=== PATIENT | male | born 1935 ===

== ENCOUNTER 2017-06-10 17:25 | Emergency (ER) | payer SELFPAY ==
[~2017-06-10] VITALS: Ht 177.8 cm; Wt 80.0 kg
[2017-06-10 17:27] VITALS: BP 161/76; PULSE 68; TEMP 36.7; O2SAT 98; Ht 177.8 cm; Wt 80.0 kg
[2017-06-10] MEDS ORDERED: DIPHTHERIA/TETANUS/PERTUSSIS 0.5 ML SYR/VIAL IM. ONE (17:45)
[2017-06-10] MEDS ORDERED: AMIO200T4 PO (17:53)
[2017-06-10] MEDS ORDERED: AMLO2.5T PO (17:54)
[2017-06-10] MEDS ORDERED: TPRSR/50 PO (17:54)
[2017-06-10] MEDS ORDERED: CEPH500C2 PO (17:54)
[2017-06-10] MEDS ORDERED: LOSA50TA54 PO (17:54)
[2017-06-10] MEDS ORDERED: RIVA1TAB4 PO (17:54)
[2017-06-10] MEDS ORDERED: METF-384 PO (17:57)
[2017-06-10] MEDS ORDERED: SIMV20TA2 PO (17:57)
--- NOTE | 2017-06-11 22:55 | EMERGENCY ROOM VISIT NOTE ---
ED Visit Note First contact with patient: 17:33 Chief Complaint: Left arm infection. History of Present Illness: Mr. Liborio García is an 82-year-old [place] male who ambulates into the ED accompanied by family members complaining of a left arm infection. Should be noted patient reports his primary language is [place] but he does speak a little bit of Slovak. I did not need to have much translation during my conversation with the patient has was able to explain/answer my questions. Patient reports a proximally 2 weeks ago he scratched his arm in [place]. He reports there was some initial bleeding but it was not severe. He reports over the last 2 weeks he has noted that the abrasion has been slightly red and intermittent oozing of clear fluid. He also reports that it is itchy. He is concerned about a possible infection in this area. He does report that he has been cleaning the area and covering it with antibiotic ointment but the itching and the redness has persisted. Currently he denies any fevers, chills, sweats, other skin eruptions, other skin color changes, upper respiratory tract symptoms, shortness of breath, chest pain, decreased appetite, abdominal pain, nausea, vomiting, left elbow pain, left arm weakness/numbness/tingling, pain in the area of the abrasion. Review of Systems: As noted above in history of present illness. Past Medical History: Hypertension, diabetes. Current Medications: Medications Dose Route/Sig Max Daily Dose Days Date Category Zocor (Simvastatin) 20 Mg Tab 20 Mg PO QPM 06/10/17 Reported Glucophage (Metformin Hcl) 1,000 Mg Tab 1,000 Mg PO BID 06/10/17 Reported Keflex (Cephalexin Monohydrate) 500 Mg Cap 500 Mg PO QID 7 06/10/17 Rx Xarelto (Rivaroxaban) 20 Mg Tab 20 Mg PO DAILY 06/10/17 Reported Cozaar (Losartan Potassium) 50 Mg Tab 50 Mg PO DAILY 06/10/17 Reported Norvasc (Amlodipine Besylate) 2.5 Mg Tab 2.5 Mg PO DAILY 06/10/17 Reported Metoprolol Succinate ER (Metoprolol Succinate) 50 Mg Tabcr 50 Mg PO DAILY 06/10/17 Reported Cordarone (Amiodarone Hcl) 200 Mg Tab 200 Mg PO DAILY 06/10/17 Reported Allergies to Medications: Asthma. Social History: Patient is not employed; he feels safe in his home environment; he denies tobacco and alcohol use. Physical Examination: Vital Signs: Date Time Temp Pulse Resp B/P (MAP) Pulse Ox O2 Delivery O2 Flow Rate FiO2 06/10/17 17:27 36.7 68 18 161/76 98 Room Air GENERAL: 82-year-old male in no acute distress, nontoxic-appearing, afebrile and hemodynamically stable. NEUROLOGICAL: Awake, alert and oriented to person, place and time. Answering questions appropriately and following commands. SKIN: Warm, dry and pink. LEFT UPPER EXTREMITY: Superficial abrasion over the lateral aspect of the distal humerus. This abrasion is surrounded with some mild erythema and edema. There is no purulent drainage or lymphangitis. Additionally noted in the area that is mildly erythematous and there appears to be a fine macular papular rash. LEFT UPPER EXTREMITY: Soft tissue injury as noted above. No gross bony deformity. No tenderness in the shoulder, elbow, forearm or wrist. Full range of motion of the shoulder, elbow and forearm. 4/5 muscle strength in all movements of the shoulder, elbow and forearm. Throughout the hand the skin was warm and pink and capillary refill is brisk. He was able to distinguish light sensations through all dermatomes. ED Course: Patient is assessed as noted above. Patient's medication list was reviewed. Patient's wound was cleansed and covered with bacitracin dressing. Patient and family members were educated about today's findings and instructed on his treatment plan; they verbalized understanding and agreement with this plan. Clinical Impression: Left upper extremity wound infection. Disposition: Patient discharged home in stable condition; prior to departure he was reassessed and continued to report he was pain and symptom-free except for the itching. Plan: Patient was prescribed Keflex 500 mg 4 times a day for 7 days. Patient was encouraged to continue to clean the wound with soap and water and cover with antibiotic ointment. Patient was educated on signs of worsening infection. Patient was encouraged return ED for worsening signs of infection, uncontrolled pain or any new/concerning symptoms.
== END 2017-06-10 17:55 | disposition home or self-care (01) ==
LOC: C.EDB 17:28 → C.EDD 17:55
DX: S40.812A Abrasion of left upper arm, initial encounter (principal); L98.9 Disorder of the skin and subcutaneous tissue, unspecified; X58.XXXA Exposure to other specified factors, initial encounter; Z23 Encounter for immunization; I10 Essential (primary) hypertension; E11.9 Type 2 diabetes mellitus without complications; Z79.84 Long term (current) use of oral hypoglycemic drugs; Z79.899 Other long term (current) drug therapy